=== PATIENT | female | born 1935 | race Caucasian/White ===

== ENCOUNTER 2023-08-03 19:17 | Inpatient (IN) | payer MEDICARE, OTHER, SELFPAY ==
[2023-08-03 13:57] VITALS: BP 136/70
[2023-08-03 14:27] LABS: % Basophils 0.6 % (0-2); % Eosinophils 1.9 % (0-6); % Immature Granulocytes 0.6 % (0-0.5); % Lymphocytes 13.4 % (20.5-51.1); % Neutrophils 74.5 % (42.2-75.2); Absolute Basophils 0.1 10^3/uL (0-0.2); Absolute Eosinophils 0.2 10^3/uL (0-0.7); Absolute Immature Granulocytes 0.1 10^3/uL (0-0.05); Absolute Lymphocytes 1.7 10^3/uL (1.2-3.4); Absolute Monocytes 1.1 10^3/uL (0.1-0.6); Absolute Neutrophils 9.2 10^3/uL (1.4-6.5); Hematocrit 35.8 % (37.0-47.0); Mean Corp Hgb Conc. 33.5 g/dL (33.0-37.0); Mean Corpuscular Hgb 30.9 pg (27.0-31.0); Mean Corpuscular Volume 92.3 fL (81.0-99.0); Mean Platelet Volume 9.9 fL (7.4-10.4); Nucleated Red Blood Cells % 0 %; Platelet Count 324 10^3/uL (130-400); Red Blood Cell Count 3.88 10^6/uL (4.20-5.40); Red Cell Dist. Width 14.6 % (11.5-14.5); White Blood Cell Count 12.4 10^3/uL (4.8-10.8)
[2023-08-03 14:39] LABS: INR 1.16; PT 14.8 Sec (11.4-14.6)
[2023-08-03 14:40] LABS: ALT (SGPT) 24 U/L (0-35); AST (SGOT) 30 U/L (14-36); Albumin 4.2 g/dl (3.5-5.0); Alkaline Phosphatase 88 U/L (38-126); Blood Urea Nitrogen 35 mg/dl (7-17); Calcium 9.4 mg/dl (8.4-10.2); Carbon Dioxide 19 mmol/L (22-30); Chloride 109 mmol/L (98-107); Glucose 177 mg/dl (70-99); Potassium 5.2 mmol/L (3.5-5.1); Sodium 137 mmol/L (135-145); Total Bilirubin 0.9 mg/dl (0.2-1.3); Total Protein 7.5 g/dl (6.3-8.2); eGFR 31.02
[2023-08-03 14:51] LABS: Troponin I 0.026 ng/ml
--- NOTE | 2023-08-03 17:13 | ED.GENMED ---
History of Present Illness
General
Chief Complaint: Breathing Problem
Source: patient
Exam Limitations: none
Time Seen by Provider: 08/03/23 16:57
Travel History
Have you had any contact with someone who has COVID-19?: No
Do you have any symptoms of coronavirus? Fever > 100 degrees, chills, cough, shortness of breath, sore throat, loss of taste or smell, muscle aches, or headache?: No
History of Present Illness
History of Present Illness:
See MDM
Past History
Past History
ED Past Medical History: HTN and Other (Vertigo)
ED Past Surgical History: Other (noncontributory)
Social History
Tobacco: Non-smoker
Alcohol: None
Personal:
Phy Exam
Physical Exam
Physical Exam:
See MDM
Scores
Heart Failure Risk
Heart Failure Risk Score: Yes
History of Stroke or TIA: No
History of intubation for respiratory distress: No
Heart rate on ED arrival >/= 110: No
SaO2 <90% on arrival on room air: No
HR >/=110 during 3min walk test (or too ill to perform test): Yes
ECG has acute ischemic changes: No
Urea >/=12mmol/L (BUN 33.6mg/dL): Yes
Serum CO2>/=35mmol/L: No
Troponin I or T elevated to CO Level (0.4mg/dL): No
NT-proBNP >/=5,000ng/L (5,000pg/ml): No
HF Risk Score: 3
Admission Status: HIGH RISK 15.9% Consider SNF treatment or admission to hospital
Course
Orders/Labs/Results
Orders:
Orders
08/03/23 14:01
Electrocardiogram (*1) Urgent
Reason for Study: Atrial Fibrillation
08/03/23 14:15
Prothrombin Time Urgent
08/03/23 14:16
Complete Blood Count/With Diff Urgent
Comprehensive Metabolic Panel Urgent
NT-proBNP Urgent
Troponin I Urgent
08/03/23 17:00
Add On- LAB Urgent
Tests Added?: BNP, TSH reflex Free T4
08/03/23 17:13
CR Chest - 2 Views Urgent
Comment:
Reason For Exam: SOB x 1 month, new onset A fib, leg swelling
08/03/23 17:15
TSH Reflex To Free T4 Urgent
Comment: ADD ON
08/03/23 17:55
Furosemide [Lasix] 40 mg IV NOW STA
08/03/23 18:03
Consult Cardiology [CARDIOLOGY CONSULT] Routine
Consulting Provider: Vaibhav Dahl
Was physician already notified: Yes
Abnormal Lab Results
08/03/23 08/03/23
14:15 14:16
WBC 12.4 H 10^3/uL
(4.8-10.8)
RBC 3.88 L 10^6/uL
(4.20-5.40)
Hct 35.8 L %
(37.0-47.0)
RDW 14.6 H %
(11.5-14.5)
Abs Immat Gran (auto) 0.1 H 10^3/uL
(0-0.05)
Absolute Neuts (auto) 9.2 H 10^3/uL
(1.4-6.5)
Absolute Monos (auto) 1.1 H 10^3/uL
(0.1-0.6)
Immature Gran % 0.6 H %
(0-0.5)
Lymphocytes % 13.4 L %
(20.5-51.1)
PT 14.8 H Sec
(11.4-14.6)
Potassium 5.2 H mmol/L
(3.5-5.1)
Chloride 109 H mmol/L
(98-107)
Carbon Dioxide 19 L mmol/L
(22-30)
BUN 35 H mg/dl
(7-17)
Creatinine 1.6 H mg/dL
(0.6-1.0)
Glucose 177 H mg/dl
(70-99)
08/03/23 14:16
08/03/23 14:16
Vital Signs
Initial and Last Documented VS:
Initial Vital Signs
Temp Pulse Resp BP Pulse Ox
98.9 F 67 18 136/70 97
08/03/23 13:57 08/03/23 13:57 08/03/23 13:57 08/03/23 13:57 08/03/23 13:57
Last Documented Vital Signs
Temp Pulse Resp BP Pulse Ox
98.9 F 74 24 136/70 96
08/03/23 13:57 08/03/23 17:02 08/03/23 17:02 08/03/23 13:57 08/03/23 17:02
MDM/Problems Addressed
Differential Diagnosis Includes:
HPI and MDM Narrative:
87-year-old female presenting from PCP office for evaluation of shortness of breath x 1 month. Patient found to be in new onset A-fib. Patient states she is short of breath when she ambulates. Patient unsure if her legs are more swollen.
Given her shortness of breath, will obtain chest x-ray
EKG confirms A-Fib.
Troponin negative. Will obtain BNP
Physical exam
General: Well appearing and non-toxic
HEENT: protecting airway
Neck: appears supple
CV: No evidence of cyanosis. Regular rate. Irregular rhythm
Resp: No accessory muscle use. Lungs clear
Abd: Non-distended
Extremities: +1 pitting edema bilateral lower extremities
Neuro: alert
Psych: Normal affect
Skin: Intact
Problems Addressed including Acute and Chronic Conditions affecting care:
1. Shortness of breath
Acuity: acute
Prognosis: stable
Details: Will obtain chest x-ray to rule out pneumonia versus CHF
2. New onset A-fib
Acuity: acute
Prognosis: stable
Details: Currently rate controlled but too symptomatic to go home
Updates
Chest x-ray concerning for mild pulmonary edema. Will give IV Lasix. Cardiology made aware who will evaluate in the morning.
Differential Diagnosis (but not limited to): Pneumonia, CHF, PE
Testing considered: D-dimer
Drug therapy (if applicable): OTC meds, please see d/c instruction regarding Rx drugs
Amount and/or Complexity of Data Reviewed
Clinical info obtained from: Patient and daughter
External data reviewed: N/A
Labs I independently reviewed (but not limited to): Trop normal, BNP 4700
Radiology: X-ray independently reviewed: Chest x-ray concerning for pulmonary edema
Pulse Ox: not hypoxic
EKG independently reviewed: A-fib, normal axis, no STEMI
Natural Gas Inspector: A-fib
Critical Care: The high probability of a clinically significant, sudden or life threatening deterioration of the cardiopulmonary system(s) required my full and direct attention, intervention and personal management. The aggregate critical care time
was 33 minutes. This time is in addition to time spent performing reported procedures but includes the following:
[x] Data Review and interpretation
[x] Patient assessment and monitoring of vital signs
[x] Documentation
[x] Medication orders and management
Risk of Complication:
Social Determinants of health: Good social support
Discussed with other providers: Special Events Director, hospitalist
Escalation of Care includes Admit/Obs: Given new onset A-fib concern for pulmonary edema, will start Lasix and admit
Occasional wrong word or 'sound a like' substitutions may have occurred due to the inherent limitations of voice recognition software. Read the chart carefully and recognize, using context, where substitutions have occurred.
*Critical Care Note
Total Time (30-74mins, 75-104mins- exclusive of procedures): 33 min
ED Attending Note
-
Portions of this chart may have been created with voice recognition software.� Occasional wrong word or��sound alike� substitutions may have occurred due to the inherent limitations of voice recognition software.
Discharge Plan
Departure
Patient Disposition: Admit
Date of Disposition: 08/03/23
Time of Disposition: 18:05
Admit to: Telemetry
Presentation/result/management discussed w/ accepting MD/DO: Hospitalist
Discharge Problem:
New onset a-fib, Pulmonary edema
Prescriptions:
No Action
atenolol 100 MG tablet
100 mg PO DAILY
bimatoprost [Lumigan] 1 DROP drops
1 drp ophthalmic (eye) HS
Patient Comments:
both eyes
meclizine 25 MG tablet
25 mg PO Q8HPRN PRN (Reason: vertigo) Qty: 30 0RF
alendronate 70 MG tablet
70 mg PO SA
levothyroxine 50 MCG tablet
50 mcg PO DAILY
mupirocin 1 APPLIC ointment
1 applic intranasal BID Qty: 1 0RF
Patient Comments:
Patient started this treatment on 12/29/20 in the morning. She administered this morning 01/01/21 @ 0700.
qvxzhgwvsea-ozoiekihl-gajpvfgc [Trelegy Ellipta] 1 EACH blister with device
1 puff inhalation DAILY
sennosides [senna] 1 TABLET tablet
2 tab PO BID 0RF
aspirin 325 MG tablet
325 mg PO DAILY Qty: 28 0RF
Rx Instructions:
Take daily x4 weeks for blood clot prevention; then resume Aspirin 81 mg daily.
magnesium hydroxide 30 ML suspension
30 ml PO DAILYPRN PRN (Reason: constipation) 0RF
pantoprazole 40 MG tablet,delayed release (DR/EC)
40 mg PO DAILY Qty: 30 0RF
docusate sodium 100 MG capsule
100 mg PO BID 0RF
oxycodone 5 MG tablet
5 mg PO Q4HPRN PRN (Reason: moderate-severe pain) Qty: 30 0RF
Rx Instructions:
1 tab moderate pain or 2 if pain severe
Dx total joint replacement
ongoing therapy
acetaminophen 500 MG tablet
1,000 mg PO Q6H Qty: 60 0RF
Rx Instructions:
Do not exceed >4000 mg daily.
losartan 50 MG tablet
50 mg PO DAILY Qty: 0 0RF
Rx Instructions:
Hold if systolic blood pressure <130 while on Oxycodone.
vitamin E 1,000 UNIT capsule
2,000 unit PO DAILY Qty: 0 0RF
Rx Instructions:
Resume in 1 week.
felodipine 10 MG tablet extended release 24 hr
10 mg PO DAILY Qty: 0 0RF
Rx Instructions:
Hold if systolic blood pressure <130 while on Oxycodone.
Referrals:
NONE,* [Family Provider] -
Interventions
Interventions:
*Risk Screen - Suicide Last Done: 08/03/23 13:57
*General Assessment Last Done: 08/03/23 13:57
*Neglect/Abuse Screening Last Done: 08/03/23 13:57
ED- Fall Risk Assessment Last Done: 08/03/23 17:38
*ED COVID-19 Vaccine History Last Done: 08/03/23 17:34
ED- Cardiac Assessment Last Done: 08/03/23 17:38
ED- Pulmonary Assessment Last Done: 08/03/23 17:38
[2023-08-03 17:36] VITALS: BP 144/74
[2023-08-03 17:52] LABS: NT-proBNP 4720 pg/ml
[2023-08-03 18:00] VITALS: BP 139/93
[2023-08-03 18:19] LABS: TSH Reflex To Free T4 4.29 uIU/ml (0.47-4.68)
[2023-08-03] MEDS: LASIX 40 MG IV (18:39)
[2023-08-03] MEDS: ROCEPHIN 1000 MG IV (18:53)
[2023-08-03] MEDS: STERILE WATER FOR INJECTION 10 ML IV (18:53)
[2023-08-03] MEDS: VIBRAMYCIN 100 MG PO (18:53)
--- NOTE | 2023-08-03 18:55 | HPS.HSE ---
Addendum entered and electronically signed by Antonino Carlton MD 08/03/23 19:13:
Patient seen and examined independently with PA.� 87-year-old female past medical history of hypertension, asthma, hypothyroidism, CKD, sent in by primary for new onset A-fib discovered today.� She has been having dry cough and shortness of breath
for the past few weeks.� No fevers or chills.� Increased lower extremity edema with stable weight.� Labs show leukocytosis, hyperkalemia.� Chest x-ray shows small right pleural effusion, tiny pleural effusion, mild suspected airspace disease in the
posterior right lower lobe concerning for pneumonia.� Heart rate is controlled.� Start Eliquis, check echocardiogram, IV Lasix, cardiology consulted.� Check procalcitonin, ceftriaxone/doxycycline.
Original Note:
Family Physician
-
Family Physician: * NONE
Chief Complaint
-
Cough and Shortness of Breath
History of Present Illness
Patient is a 87 y/o female with PMH of HTN, diabetes mellitus type II, and reactive airway disease who presents c/o SOB and dry cough. She presented from her PCP's office where they found new-onset atrial fibrillation. She was treated with
azithromycin and prednisone in June for persistent cough after which she returned to baseline. However, about 3 weeks ago, the cough and SOB returned. She describes dyspnea on exertion and denies SOB at rest, orthopnea, and paroxysmal nocturnal
dyspnea. Her HgbA1C was 8.2 in June. She says she has been not been eating sugar and limiting carbs since June, has been weighing herself everyday and notes no weight change. She admits to swelling her legs for several months that worsens
throughout the day and improves by morning. She denies fever, palpitations, and chest pain.
Medical History
Past Medical History
Past Medical History: Reports Other
Additional Past Medical History:
Essential Hypertension
Diabetes Mellitus, Type II
CKD Stage III
Asthma
Hypothyroidism
Glaucoma / Macular Degeneration
Past Surgical History: Reports Other
Additional Past Surgical History:
Cholecystectomy
Appendectomy
Left Total Knee Replacement
Social History
Tobacco: Non-smoker
Alcohol: None
Family History
Family History: Not pertinent
Allergies / Home Medications
Allergies reflects when Allergies were last updated in [employer].
Home Medications with original date entered in [employer]
Allergy/Medication List:
Allergies
Allergy/AdvReac Type Severity Reaction Status Date / Time
No Known Allergies Allergy Verified 08/03/23 13:55
Home Medications
atenolol 100 mg tablet 100 mg PO DAILY Blood pressure 11/13/16
bimatoprost 0.01 % eye drops (Lumigan) 1 drp BOTH EYES HS Eye condition 11/13/16
levothyroxine 50 mcg tablet 50 mcg PO MOTUWETHFRSA Thyroid 11/18/20
felodipine 10 mg tablet,extended release 24 hr 10 mg PO DAILY Blood pressure ##0 01/02/21
cholecalciferol (vitamin D3) 50 mcg (2,000 unit) tablet (Vitamin D3) 50 mcg PO DAILY 08/03/23
fluticasone furoate 200 mcg-vilanterol 25 mcg/dose inhalation powder (Breo Ellipta) 1 inh inhalation R DAILY 08/03/23
levothyroxine 50 mcg tablet (Synthroid) 100 mcg PO ORTIZ 08/03/23
spironolactone 25 mg tablet 12.5 mg PO DAILY 08/03/23
Review of Systems
-
A 12 point ROS was completed and negative except as noted: Yes
Constitutional: Denies Fever or Chills
Respiratory: Reports See HPI
Cardiac: Denies Chest Pain or Palpitations
Physical Exam
Vital Signs
Vital Signs
Temp Pulse Resp BP Pulse Ox
98.9 F 68 24 139/93 96
08/03/23 13:57 08/03/23 18:39 08/03/23 17:02 08/03/23 18:39 08/03/23 17:02
Physical Exam
General: Comfortable and Conversant
HEENT: Anicteric and Moist mucous membranes
Respiratory: Wheezes (right lower/middle region), Rales (Bilateral bases, right greater than left) and Non Labored Respirations
Cardiac: S1/S2 and Irregular Rhythm; No Tachycardia
GI: Soft and Non Tender
Rectal: Deferred by Provider
Musculoskeletal: No Clubbing, No Cyanosis and Other (+2 pitting edema bilateral lower ext)
Skin: Warm and Dry
Neuro: Awake, Alert, Oriented and Nonfocal/grossly intact
Psych: Calm
Laboratory Results
-
08/03/23 14:16
08/03/23 14:16
Laboratory Results
PT 14.8 Sec (11.4-14.6) H 08/03/23 14:15
INR 1.16 08/03/23 14:15
Total Bilirubin 0.9 mg/dl (0.2-1.3) 08/03/23 14:16
AST 30 U/L (14-36) 08/03/23 14:16
ALT 24 U/L (0-35) 08/03/23 14:16
Alkaline Phosphatase 88 U/L (38-126) 08/03/23 14:16
Troponin I 0.026 ng/ml 08/03/23 14:16
Data Reviewed
-
Lab Data: Labs Reviewed by me
Impression/Plan
-
Acute Heart Failure, unknown type
-Consult Cardiology
-Check Echo
-Continue Lasix
-Continue spironolactone
-Monitor Is&Os and Daily Weights
Atrial Fibrillation, unknown duration
-Consult Cardiology
-Monitor on Telemetry
-Start Eliquis for anticoagulation
Community Acquired Pneumonia
-Start ceftriaxone and doxycycline
-Check procalcitonin
Essential Hypertension
-Continue atenolol and felodipine with hold parameters
Diabetes Mellitus, Type II
-HgbA1c 8.2 in June 2023
-Not currently on medication as outpatient
-Monitor sugars and continue coverage insulin
CKD Stage III
-Creatinine at baseline
-Monitor creatinine closely while on diuretics
Asthma / Reactive Airway Disease
-Continue Breo
Hypothyroidism
-Continue levothyroxine
Glaucoma / Macular Degeneration
-Continue Lumigan drops
DVT proph: Aracelis
Code Status: DNR
[2023-08-03 19:20] VITALS: BP 128/57
[2023-08-03 20:00] VITALS: BP 122/48
[2023-08-03 20:00] LABS: Procalcitonin < 0.05 ng/ml (0.0-0.25)
[2023-08-03 20:53] VITALS: BMI 27.4
[2023-08-03 21:12] VITALS: BP 143/70
[2023-08-03] MEDS: LUMIGAN 0.01% 1 DROP BOTH EYES (21:52)
[2023-08-03] MEDS: ELIQUIS 2.5 MG PO (21:52)
[2023-08-03 22:08] LABS: Glucose - Point of Care 164 mg/dl (70-99)
[2023-08-04] VITALS (8 sets, daily range): BP systolic 122–146; BP diastolic 55–65; PULSE 60–75; O2SAT 95–96; BMI 26.5
[2023-08-04] MEDS: SYNTHROID 50 MCG PO (05:31)
[2023-08-04] MEDS: SYMBICORT 160/4.5 MCG INHALER 2 PUFF INH ×2 (07:38→20:08)
[2023-08-04] MEDS: VIBRAMYCIN 100 MG PO (08:35)
[2023-08-04] MEDS: ALDACTONE 12.5 MG PO (08:35)
[2023-08-04] MEDS: PLENDIL EXTENDED RELEASE 10 MG PO (08:36)
[2023-08-04] MEDS: VITAMIN D3 (cholecalciferol) 50 MCG PO (08:36)
[2023-08-04] MEDS: TENORMIN 100 MG PO (08:36)
[2023-08-04] MEDS: LASIX 40 MG IV ×2 (08:37→16:52)
[2023-08-04] MEDS: ELIQUIS 2.5 MG PO ×2 (08:37→20:29)
[2023-08-04] MEDS: NOVOLOG FLEXPEN-LOW RESISTANCE SC ×2 (08:42→16:51)
[2023-08-04 08:43] LABS: Glucose - Point of Care 135 mg/dl (70-99)
--- NOTE | 2023-08-04 08:45 | CON.CAR ---
Addendum entered and electronically signed by John Mcclellan MD 08/04/23 09:32:
I saw and examined the patient.
The INSTRUMENT LENS GRINDER APPRENTICE's note was reviewed and I agree with the note.
Comment: 87 y/o female with hypertension, DM (not on medicines), hypothyroidism, CKD, reactive airway disease, and hx mildly abnormal stress test 2020 who is here for evaluation of VIDAL x 3-4 weeks with associated cough and edema. She saw her PCP and
was seen to be in AFIB and was sent to ER. She has been diuresing well and HRs are controlled.
- IV diuresis, likely transition to oral in a day or two K >4 Mag > 2
- Will need to be on AC CHADSVASC 7
- HR is controlled
Original Note:
Consultation
Consultation Request
Date/Time Consultation Requested: 08/03/23 180
Date/Time Consultation Performed: 08/04/23905
Requesting Provider: Dr. Ndiaye
Performing Provider: Melissa SHEIKH for Dr. Mcclellan
Reason for Consultation: AFIB, CHF
Medical History
-
Chief Complaint: SOB
History of Present Illness:
87 y/o female with hypertension, DM (not on medicines), hypothyroidism, CKD, reactive airway disease, and hx mildly abnormal stress test 2020 who is here for evaluation of VIDAL x 3-4 weeks with associated cough and edema. She saw her PCP and was seen
to be in AFIB and was sent to ER. She denies any orthopnea or weight gain. She has been working on her diet and not losing any weight. She is admitted for management of possible PNA (abx), acute HF (IV lasix), and AFIB (started on Eliquis). She
denies any CP or palpitations.
Past Medical History
Past Medical History: HTN, Hypothyroidism, NIDDM and Other (as above)
Social History
Tobacco: Non-Smoker
Living: Alone
Family History
Family History: Reviewed & Not Pertinent
Allergies / Home Medications
Allergy/AdvReac Type Severity Reaction Status Date / Time
No Known Allergies Allergy Verified 08/03/23 13:55
Medication Instructions Recorded Confirmed Type
atenolol 100 mg tablet 100 mg PO DAILY Blood pressure 11/13/16 08/03/23 History
bimatoprost 0.01 % eye drops 1 drp BOTH EYES HS Eye condition 11/13/16 08/03/23 History
(Lumigan)
levothyroxine 50 mcg tablet 50 mcg PO MOTUWETHFRSA Thyroid 11/18/20 08/03/23 History
felodipine 10 mg tablet,extended 10 mg PO DAILY Blood pressure ##0 01/02/21 08/03/23 Rx
release 24 hr
cholecalciferol (vitamin D3) 50 50 mcg PO DAILY Supplement 08/03/23 08/03/23 History
mcg (2,000 unit) tablet (Vitamin
D3)
fluticasone furoate 200 1 inh inhalation R DAILY 08/03/23 08/03/23 History
mcg-vilanterol 25 mcg/dose Lung/Breathing Issues
inhalation powder (Breo Ellipta)
levothyroxine 50 mcg tablet 100 mcg PO ORTIZ Thyroid 08/03/23 08/03/23 History
(Synthroid)
spironolactone 25 mg tablet 12.5 mg PO DAILY Fluid 08/03/23 08/03/23 History
Retention/Swelling
Review of Systems
-
History Source: Patient
All other systems: Negative unless noted
Respiratory: Cough and Trouble Breathing
Musculoskeletal: Edema
Physical Exam
Vital Signs
Temp Pulse Resp BP Pulse Ox
97.6 F 88 15 133/56 96
08/04/23 07:00 08/04/23 07:45 08/04/23 07:45 08/04/23 07:00 08/04/23 07:45
Lab Results
Troponin I 0.026 ng/ml 08/03/23 14:16
Hme-Z-Bqdpazvokin Pept 4720 pg/ml 08/03/23 14:16
Physical Exam
General: Well Developed, Well Nourished and No Apparent Distress
HEENT: Normocephalic and Anicteric
Respiratory: Other (diminished to bases)
Cardiac: Irregular Rhythm and Peripheral Edema (mild BLE edema)
GI: Soft and Non Distended
Musculoskeletal: Edema
Skin: Warm and Dry
Neuro: AO x 3
Psych: Calm
Impression / Plan
-
Acute HF, type unknown: last imaging 2020 preserved EF
-agree with IV lasix, which requires intensive monitoring for toxicity
-check echo
-CHF education
-limit sodium/fluid
Possible PNA:
-on abx
-management per primary team
AFIB: new diagnosis- type and onset unknown:
-Rate-controlled on BB- continue atenolol. Denies palpitations
-[id number] score is 7 for age, female, suspected CAD based on stress test, HTN, DM, and CHF- Eliquis 2.5 mg PO BID appropriately started by primary team
-check echo
-TSH WNL
HTN:
-stable
-continue meds and monitor
-if hyperkalemia continues, may need to stop spironolactone- AM labs pending, monitor with diuresis
CKD:
-monitor with diuresis
-AM labs pending
Abnormal stress test hx:
-2020 (see details below)
-never followed up in office after that
-denies any CP
-OP follow-up
Data Reviewed
-
EKG: Tracing Personally Visualized and interpreted (AFIB 71 BPM)
Radiology: Report Reviewed by me (CXR: 08/03/23: Small right pleural effusion. New Tiny left pleural effusion versus pleural thickening. New. Mild suspected airspace disease in the posterior probable right lower lobe concerning for pneumonia. New.
Mild cardiomegaly. Stable.)
Medical Tests (Nuc Med, Echo etc): Report Reviewed by me (stress test 12/15/20: Small, apical, reversible defect consistent with mild ischemia.)
Labs: Labs Reviewed by me
[2023-08-04 08:53] LABS: Hematocrit 36.1 % (37.0-47.0); Mean Corp Hgb Conc. 33.2 g/dL (33.0-37.0); Mean Corpuscular Hgb 30.6 pg (27.0-31.0); Mean Corpuscular Volume 92.1 fL (81.0-99.0); Mean Platelet Volume 10.2 fL (7.4-10.4); Platelet Count 315 10^3/uL (130-400); Red Blood Cell Count 3.92 10^6/uL (4.20-5.40); Red Cell Dist. Width 14.5 % (11.5-14.5); White Blood Cell Count 11.7 10^3/uL (4.8-10.8)
[2023-08-04 09:25] LABS: Blood Urea Nitrogen 34 mg/dl (7-17); Calcium 9.3 mg/dl (8.4-10.2); Carbon Dioxide 24 mmol/L (22-30); Chloride 107 mmol/L (98-107); Estimated Creatinine Clearance 23 ml/min; Glucose 129 mg/dl (70-99); HDL Cholesterol 69 mg/dl; LDL Cholesterol, Calculated 28 mg/dl; Potassium 4.2 mmol/L (3.5-5.1); Sodium 138 mmol/L (135-145); Total Cholesterol 110 mg/dl (50-199); Triglyceride 66 mg/dl (10-149); Very Low Density Lipoprotein 13 mg/dl (0-30); eGFR 33.52
[2023-08-04 09:32] LABS: Glycohemoglobin (HgbA1c) 7.7 % (4.0-5.6)
--- NOTE | 2023-08-04 10:18 | CM ---
Addendum entered by Myriam Weiss 08/04/23 13:58:
PT recommending VN, discussed with patient and daughter will send referral to [facility].
Addendum entered by Myriam Weiss 08/04/23 10:19:
Correction, patient lives alone.
Original Note:
Patient seen bedside.
IA completed.
Patient lives with spouse in 1 story home with 1 step to enter.
Patient independent prior to admission.
Ambulates with a cane.
patient has not had VN, or skilled rehab in the past.
patient denies home care needs at this time.
PCP: Dr Rutherford
Pharamcy: Hayley Farfan
Plan: home no needs anticipated.
[2023-08-04 12:14] LABS: Glucose - Point of Care 217 mg/dl (70-99)
[2023-08-04] MEDS: NOVOLOG FLEXPEN-LOW RESISTANCE 2 UNITS SC (12:43)
--- NOTE | 2023-08-04 13:24 | W.PN.HOSP.TC ---
Today's Communication/Plan
-
All discussed with the patient and the daughter
Assessment / Plan
Assessment / Plan
Physical exam:
General: Awake, alert and oriented x3, not in distress and holds appropriate conversation. Overweight
HEENT: No active discharge, ecchymosis or bruising, moist lips, tongue and mucous membrane.
Eyes: No discharge or red conjunctiva, no nystagmus, pupils are reactive and equal
Neck:Supple, no JVD no bruit no goiter.
Respiratory: Normal AP contour and diameter, normal chest wall movement, normal respiratory effort, no respiratory distress,
Lungs: Good air entry bilaterally, no wheezing or rhonchi, no rales, fine bibasilar crackles
Heart: S1, S2 irregular irregular,, normal rate, no added sound. Moderate bilateral lower extremity
Gastrointestinal: Positive bowel sounds, soft, nontender, no guarding or rigidity or organomegaly
Musculoskeletal: , no chest wall abnormality or tenderness. All joints and extremities have good range of motion, no muscle tenderness or any joint swelling or tenderness.
Extremities: No pitting edema, good peripheral pulses, good range of motion
Skin: Warm and dry, no ulceration, normal color.
Neurological: Awake, alert and oriented x3, no facial droop, moves extremities for speech clear and comprehensive, good muscle tone,.
Psychiatric: Normal mood, normal thought and judgment, normal affect,
Assessment and plan:
Acute Heart Failure, unknown type, likely triggered by new onset A-fib.
-Consult Cardiology
-Check Echo
-Continue Lasix, twice daily and can be changed orally
-Cardiology input appreciated
-Echo done in pending official report.
-Defer further workup to cardiac
-Continue� spironolactone
-Monitor Is&Os and Daily Weights
Atrial Fibrillation, unknown duration
-Consult Cardiology
-New onset
-Rate controlled
-Monitor on Telemetry
-On Tenormin 100 we will continue
-Start Eliquis for anticoagulation
Community Acquired Pneumonia
-No sign and symptom of pneumonia especially there is no fever and procalcitonin is negative.
-DC antibiotic
Essential Hypertension
-Continue atenolol and felodipine with hold parameters
Diabetes Mellitus, Type II
-HgbA1c 8.2 in June 2023
-Not currently on medication as outpatient
-Monitor sugars and continue coverage insulin
CKD Stage III
-Creatinine at baseline
-Monitor creatinine closely while on diuretics
Asthma / Reactive Airway Disease
-Continue Breo
Hypothyroidism
-Continue levothyroxine
Glaucoma / Macular Degeneration
-Continue Lumigan drops
DVT proph: Eliquis
Code Status: DNR
All discussed with the patient
Discussed with the daughter
Anticipated Discharge: 24 - 48 hours
Subjective/Interval History
-
Date of Service: August 04, 2023
Seen and examined, awake and alert, daughter at the bedside, patient's overall feels better than yesterday, she has been feeling nausea weak and lethargic over the last few weeks, workup in ER showed new onset A-fib, currently heart rate is
controlled she has evidence of fluid overload. She has been diuresis. Denies chest pain or any fever or chills.
Objective Data
-
Labs:
Laboratory Results
08/04/23
07:54
WBC 11.7 H
Hgb 12.0
Hct 36.1 L
Plt Count 315
Sodium 138
Potassium 4.2
Chloride 107
Carbon Dioxide 24
BUN 34 H
Creatinine 1.5 H
Glucose 129 H
Calcium 9.3
Vital Signs:
Vital Signs
Temp Pulse Resp BP Pulse Ox
97.6 F 67 18 146/63 97
08/04/23 11:35 08/04/23 11:35 08/04/23 11:35 08/04/23 11:35 08/04/23 11:35
I&O
08/03/23 08/04/23 08/05/23
07:59 07:59 07:59
Intake Total 120 / 120
Output Total 800 / 800
Balance -680 / -680
Review of Systems
-
All other systems: Reviewed and negative
[2023-08-04 16:51] LABS: Glucose - Point of Care 100 mg/dl (70-99)
[2023-08-04] MEDS: LUMIGAN 0.01% 1 DROP BOTH EYES (21:27)
[2023-08-05 03:00] VITALS: BP 132/68
[2023-08-05 05:05] VITALS: BMI 34.5
[2023-08-05] MEDS: SYNTHROID 50 MCG PO (06:16)
[2023-08-05 07:25] VITALS: BP 131/72
[2023-08-05] MEDS: SYMBICORT 160/4.5 MCG INHALER 2 PUFF INH (07:46)
[2023-08-05 08:19] LABS: Glucose - Point of Care 127 mg/dl (70-99)
[2023-08-05 08:26] LABS: Blood Urea Nitrogen 42 mg/dl (7-17); Calcium 9.3 mg/dl (8.4-10.2); Carbon Dioxide 21 mmol/L (22-30); Chloride 105 mmol/L (98-107); Estimated Creatinine Clearance 25 ml/min; Glucose 141 mg/dl (70-99); Magnesium 1.4 mg/dl (1.6-2.3); Potassium 4.1 mmol/L (3.5-5.1); Sodium 137 mmol/L (135-145); eGFR 31.02
[2023-08-05] MEDS: NOVOLOG FLEXPEN-LOW RESISTANCE SC (09:10)
[2023-08-05] MEDS: TENORMIN 100 MG PO (09:18)
[2023-08-05] MEDS: VITAMIN D3 (cholecalciferol) 50 MCG PO (09:18)
[2023-08-05] MEDS: PLENDIL EXTENDED RELEASE 10 MG PO (09:18)
[2023-08-05] MEDS: ALDACTONE 12.5 MG PO (09:18)
[2023-08-05] MEDS: ELIQUIS 2.5 MG PO (09:18)
[2023-08-05] MEDS: LASIX 40 MG IV (09:19)
--- NOTE | 2023-08-05 10:27 | W.PN.CD ---
Today's Communication / Plan
-
stable on current regimen
discharge planning with BMP next week
we will arrange follow up with us
please call us with additional questions
Impression / Plan
-
Acute HFPEF: improved s/p IV lasix
-echo : EF 70%, moderate MR, nl RV, mild/moderate TR, PASP 49
-transition to lasix 40mg PO daily
AFIB: new diagnosis- type and onset unknown: likely persistent
-Rate-controlled on BB- continue atenolol 100mg daily. Denies palpitations
-[id number] score is 7 for age, female, suspected CAD based on stress test, HTN, DM, and CHF- Eliquis 2.5 mg PO BID
HTN:
-stable
-continue meds and monitor
-hyperkalemia resolved with initiation of lasix
-cont atenolol, felodipine, aldactone
CKD3b:stable
Abnormal stress test hx:
-2020 (see details below)
-never followed up in office after that
-denies any CP
-OP follow-up
Physical Exam
Vital Signs/Labs
Vital Signs
Temp Pulse Resp BP Pulse Ox
97.4 F 75 14 131/72 98
08/05/23 07:25 08/05/23 07:53 08/05/23 07:53 08/05/23 07:25 08/05/23 07:53
08/04/23 08/05/23 08/06/23
06:59 06:59 06:59
Actual Weight 65.544 kg 85.36 kg
08/04/23 07:54
08/05/23 07:49
PT 14.8 Sec (11.4-14.6) H 08/03/23 14:15
INR 1.16 08/03/23 14:15
Magnesium 1.4 mg/dl (1.6-2.3) L 08/05/23 07:49
Triglycerides 66 mg/dl (10-149) 08/04/23 07:54
LDL Cholesterol, Calc 28 mg/dl 08/04/23 07:54
VLDL Cholesterol, Calc 13 mg/dl (0-30) 08/04/23 07:54
HDL Cholesterol 69 mg/dl 08/04/23 07:54
08/03/23
14:16
Tex-S-Sephaghbdzx Pept 4720
LAB Results
08/03/23
14:16
Troponin I 0.026
Physical Exam
Constitutional: No acute distress and Comfortable
EENT: Moist mucous membranes
Cardiovascular: Pedal edema is absent, JVD pressure is normal, Rhythm/rate is irregular and Systolic murmur present
Respiratory: Respiratory effort normal and Lungs clear to auscul.
GI: Soft and Distention absent
Neuro/Psych: AO x 3
Data Reviewed
-
Date of Service: August 05, 2023
EKG: Other (Tele: A fib 60s-70s)
Labs: Labs Reviewed by me
[2023-08-05] MEDS: MAGNESIUM OXIDE 500 MG PO (11:22)
[2023-08-05] MEDS: MAGNESIUM SULFATE 50 IV (11:22)
[2023-08-05 11:54] VITALS: BP 127/56
[2023-08-05 12:00] LABS: Glucose - Point of Care 160 mg/dl (70-99)
[2023-08-05] MEDS: NOVOLOG FLEXPEN-LOW RESISTANCE 1 UNITS SC (12:36)
--- NOTE | 2023-08-05 12:58 | W.DS.TRANS ---
DC Summary - [employer]er
-
Discharge Instructions:
Discharge Diagnosis/Procedures CHF and A-fib
Diet Low Cholesterol,2 Gram Sodium,Other diet
Activity As tolerated
Instructions: *PCP/Other Liquefaction Plant Operator Heart Failure Instructions
Stand-Alone Forms:
Changes to Home Medications: No
Discharge Medications:
DC Medications w/original date entered in [place]
atenolol 100 mg tablet 100 mg PO DAILY Blood pressure 11/13/16
bimatoprost 0.01 % eye drops (Lumigan) 1 drp BOTH EYES HS Eye condition 11/13/16
levothyroxine 50 mcg tablet 50 mcg PO MOTUWETHFRSA Thyroid 11/18/20
felodipine 10 mg tablet,extended release 24 hr 10 mg PO DAILY Blood pressure ##0 01/02/21
cholecalciferol (vitamin D3) 50 mcg (2,000 unit) tablet (Vitamin D3) 50 mcg PO DAILY Supplement 08/03/23
fluticasone furoate 200 mcg-vilanterol 25 mcg/dose inhalation powder (Breo Ellipta) 1 inh inhalation R DAILY Lung/Breathing Issues 08/03/23
levothyroxine 50 mcg tablet (Synthroid) 100 mcg PO ORTIZ Thyroid 08/03/23
spironolactone 25 mg tablet 12.5 mg PO DAILY Fluid Retention/Swelling 08/03/23
apixaban 2.5 mg tablet (Eliquis) 2.5 mg PO BID #60 tabs 08/05/23
furosemide 40 mg tablet 40 mg PO DAILY #30 tabs 08/05/23
magnesium 250 mg tablet 250 mg PO DAILY #30 tabs 08/05/23
Home Medication Changes
Pending Results: No
Additional Pending Results:
Physical exam:
General: Awake, alert and oriented x3, not in distress and holds appropriate conversation.
HEENT: No active discharge, ecchymosis or bruising, moist lips, tongue and mucous membrane.
Eyes: No discharge or red conjunctiva, no nystagmus, pupils are reactive and equal
Neck:Supple, no JVD no bruit no goiter.
Respiratory: Normal AP contour and diameter, normal chest wall movement, normal respiratory effort, no respiratory distress,
Lungs: Good air entry bilaterally, no wheezing or rhonchi, no rales or crackles
Heart: S1, S2 regular, normal rate, no added sound., Mild lower extremity edema much better than before
Gastrointestinal: Positive bowel sounds, soft, nontender, no guarding or rigidity or organomegaly
Musculoskeletal: , no chest wall abnormality or tenderness. All joints and extremities have good range of motion, no muscle tenderness or any joint swelling or tenderness.
Extremities: No pitting edema, good peripheral pulses, good range of motion
Skin: Warm and dry, no ulceration, normal color.
Neurological: Awake, alert and oriented x3, no facial droop, speech clear and comprehensive, good muscle tone, normal sensory and motor function
Psychiatric: Normal mood, normal thought and judgment, normal affect,
Condition on discharge: Awake, alert and oriented x3, answer question properly, able to make own decision and take care of activities of daily living, speech clear and comprehensive, continent of the bowel and bladder, ambulate without assistant news director,
goes home where lives with the family independently.
--- NOTE | 2023-08-05 12:58 | W.DCSUMMARY ---
Discharge Summary
Discharge Data
Date of Admission: 08/03/23
Date of Discharge: 08/05/23
-
Pending Results: No
Hospital Course
Discharging Physician : Dr. Tish Hawk
Disposition :
Principal Discharge diagnosis :
1. New onset A-fib with rate controlled
2. Acute congestive heart failure likely triggered by the A-fib, resolved
3. Hypertension
4. Abnormal chest x-ray likely CHF related no evidence of pneumonia as procalcitonin is negative and there was no fever.
5. Diabetes mellitus type 2
6. Chronic kidney disease stage III
7. Asthma
8. Hypothyroidism
Chronic Discharge diagnosis :
History of present illness:
Patient is a 87 y/o female with PMH of HTN, diabetes mellitus type II, and reactive airway disease who presents c/o SOB and dry cough. She presented from her PCP's office where they found new-onset atrial fibrillation. She was treated with
azithromycin and prednisone in June for persistent cough after which she returned to baseline. However, about 3 weeks ago, the cough and SOB returned. She describes dyspnea on exertion and denies SOB at rest, orthopnea, and paroxysmal nocturnal
dyspnea. Her HgbA1C was 8.2 in June. She says she has been not been eating sugar and limiting carbs since June, has been weighing herself everyday and notes no weight change. She admits to swelling her legs for several months that worsens
throughout the day and improves by morning. She denies fever, palpitations, and chest pain.
Hospital Course :
So patient admitted for shortness of breath where the workup showed evidence of acute congestive heart failure and new onset A-fib without rapid ventricular response,, which was new to the patient and the family, workup in the ER showed new onset
A-fib with rate controlled.
So patient admitted started on IV diuresis Lasix 40 twice daily and heart rate remained controlled.
Seen by cardiology and Aracelis started for anticoagulation as A-fib with the risks of thrombosis and stroke explained to the patient and the family..
Patient's condition was improving with IV diuresis her shortness of breath , orthopnea and evidence of the fluid overload were all resolving.
Lasix changed to oral today 40 mg daily by Cardiology, Dr. Aaron Fuentes, from cardiology point of view she is stable for discharge with adding Eliquis and Lasix and they will arrange for outpatient follow-up with them.
A-fib with management and complication explained to the patient and the daughter in detail.
Echo done and showed ejection fraction around 70% with mild mitral regurgitation.
No any other discomfort or abnormality, she very much improved and asymptomatic and stable for discharge.
Chest x-ray shows some abnormality concerning for pneumonia, but this likely from CHF as procalcitonin was negative and there was no fever, initially given antibiotic but that was discontinued.
Advised about side effect and Lasix and need for electrolyte and renal function check regularly will defer to primary care physician specially magnesium level is 1.4 which has been replaced and adding magnesium supplement of magnesium to her
medication list and need to check the level in 7 to 10 days by primary care and address her results.
Also side effect of the Eliquis of bleeding explained and mentioned in the discharge instruction.
Changes to Home Medications: No
Discharge Medications:
DC Medications w/original date entered in [facility]
atenolol 100 mg tablet 100 mg PO DAILY Blood pressure 11/13/16
bimatoprost 0.01 % eye drops (Lumigan) 1 drp BOTH EYES HS Eye condition 11/13/16
levothyroxine 50 mcg tablet 50 mcg PO MOTUWETHFRSA Thyroid 11/18/20
felodipine 10 mg tablet,extended release 24 hr 10 mg PO DAILY Blood pressure ##0 01/02/21
cholecalciferol (vitamin D3) 50 mcg (2,000 unit) tablet (Vitamin D3) 50 mcg PO DAILY Supplement 08/03/23
fluticasone furoate 200 mcg-vilanterol 25 mcg/dose inhalation powder (Breo Ellipta) 1 inh inhalation R DAILY Lung/Breathing Issues 08/03/23
levothyroxine 50 mcg tablet (Synthroid) 100 mcg PO ORTIZ Thyroid 08/03/23
spironolactone 25 mg tablet 12.5 mg PO DAILY Fluid Retention/Swelling 08/03/23
apixaban 2.5 mg tablet (Eliquis) 2.5 mg PO BID #60 tabs 08/05/23
furosemide 40 mg tablet 40 mg PO DAILY #30 tabs 08/05/23
magnesium 250 mg tablet 250 mg PO DAILY #30 tabs 08/05/23
Home Medication Changes�
Pending Results: No
Additional Pending Results:
Physical exam:
General: Awake, alert and oriented x3, not in distress and holds appropriate conversation.
HEENT: No active discharge, ecchymosis or bruising, moist lips, tongue and mucous membrane.
Eyes: No discharge or red conjunctiva, no nystagmus, pupils are reactive and equal
Neck:Supple, no JVD no bruit no goiter.
Respiratory: Normal AP contour and diameter, normal chest wall movement, normal respiratory effort, no respiratory distress,
Lungs: Good air entry bilaterally, no wheezing or rhonchi, no rales or crackles
Heart: S1, S2 regular, normal rate, no added sound.,� Mild lower extremity edema much better than before
Gastrointestinal: Positive bowel sounds, soft, nontender, no guarding or rigidity or organomegaly
Musculoskeletal: , no chest wall abnormality or tenderness.� All joints and extremities have good range of motion, no muscle tenderness or any joint swelling or tenderness.
Extremities: No pitting edema, good peripheral pulses, good range of motion
Skin: Warm and dry, no ulceration, normal color.�
Neurological: Awake, alert and oriented x3, no facial droop, speech clear and comprehensive, good muscle tone, normal sensory and motor function
Psychiatric: Normal mood, normal thought and judgment, normal affect,
Condition on discharge: Awake, alert and oriented x3, answer question properly, able to make own decision and take care of activities of daily living, speech clear and comprehensive, continent of the bowel and bladder, ambulate without certified physician assistant,
goes home where� lives with the family independently.
Discharge Plan
-
Patient Disposition: Home with Home Care
Discharge Diagnosis/Procedures: CHF and A-fib
Condition: Fair
Diet: Low Cholesterol, 2 Gram Sodium and Other diet
Activity: As tolerated
Activity Restrictions/Additional Instructions:
-Been diagnosed with a new onset atrial fibrillation was most likely caused congestive heart failure, echocardiogram showed normal ejection fraction.
Continue home medication while 2 new medication added including furosemide to Lasix which is water pill 40 mg daily the second 1 is Eliquis 2.5 twice a day which is a blood thinner to prevent blood clot formation because of the A-fib and preventing
stroke.
-Lasix just once a day may causes some electrolyte abnormalities therefore need to regular electrolyte and renal function check, will defer to primary care physician to order within a week to 7-day and address the result,
-Because her magnesium was low 1 Lasix make because lower magnesium we starting at 250 mg daily and could have some [place] veggies or could may help replenishing of keeping magnesium level at normal range, also need to check the level in 7 to 10
days if the result is okay could be addressed with the primary care physician regarding continuation of the supplement on.
-Eliquis 2.5 mg twice it is a blood thinner, may cause any bleeding, if any bleeding or any changes stool or urine color appreciated need to be addressed with the primary care physician or return to the hospital.
-Monitor blood pressure closely and have diarrhea, call cardiology or primary care physician of the blood pressure consistently above 130/75.
-Monitor heart rate closely and have diarrhea, call primary care licensing registration examiner with a heart rate consistently above 120 or below 55.
Instructions: *PCP/Other Working Manager Heart Failure Instructions
Referrals:
Mine Elias CRNP [Specified Professional Personl] - 08/18/23 9:20 am
Paddy Rutherford MD [Family Provider] -
Prescriptions:
New
Eliquis 2.5 mg Tablet
2.5 mg PO BID Qty: 60 1RF
furosemide 40 mg Tablet
40 mg PO DAILY Qty: 30 1RF
magnesium 250 mg tablet
250 mg PO DAILY Qty: 30 1RF
Continued
atenolol 100 MG tablet
100 mg PO DAILY
Lumigan 1 DROP drops
1 drp BOTH EYES HS
levothyroxine 50 MCG tablet
50 mcg PO MOTUWETHFRSA
felodipine 10 MG tablet extended release 24 hr
10 mg PO DAILY Qty: 0 0RF
spironolactone 25 mg Tablet
12.5 mg PO DAILY
levothyroxine [Synthroid] 50 mcg Tablet
100 mcg PO ORTIZ
cholecalciferol (vitamin D3) [Vitamin D3] 50 mcg (2,000 unit) Tablet
50 mcg PO DAILY
fluticasone furoate-vilanterol [Breo Ellipta] 200-25 mcg/dose Blister With Device
1 inh INHALATION R DAILY
Discharge Orders:
Discharge Patient (As Directed); Ordered 08/05/23
Ordered By: Tish Hawk
Discharge Date and Time
Discharge Date/Time: 08/05/23 16:07
--- NOTE | 2023-08-05 13:14 | CM ---
patient for d/c home today.
IMM reviewed and signed.
Plan: home with VN
Mane VILLAVICENCIO
== END 2023-08-05 16:07 | disposition home health service (06) | DRG 291 ==
LOC: 4 WEST ACU 19:17
PROVIDERS: Physician Assistant Medical; ADMITTING PHYSICIAN Hospitalist; ATTENDING PHYSICIAN Internal Medicine; CONSULT PHYSICIAN Internal Medicine; EMERGENCY PHYSICIAN Student in an Organized Health Care Education/Training Program; FAMILY PHYSICIAN Family Medicine
DX: I13.0 Hypertensive heart and chronic kidney disease with heart failure and stage 1 through stage 4 chronic kidney disease, or unspecified chronic kidney disease (principal); I50.31 Acute diastolic (congestive) heart failure; I48.19 Other persistent atrial fibrillation; E11.22 Type 2 diabetes mellitus with diabetic chronic kidney disease; E03.9 Hypothyroidism, unspecified; J45.909 Unspecified asthma, uncomplicated; N18.30 Chronic kidney disease, stage 3 unspecified; Z66 Do not resuscitate
CPT/HCPCS: 71046; 80048; 80053; 80061; 82962; 83036; 83735; 83880; 84145; 84443; 84484; 85025; 85027; 85610; 93005; 93306; 94640; 96374; 97162; 97166; 99291

== ENCOUNTER → 2023-08-25 06:51 | Day surgery (SDC) | payer MEDICARE, OTHER, SELFPAY | LOC: CATH 06:51 | PROVIDERS: ATTENDING PHYSICIAN Internal Medicine; FAMILY PHYSICIAN Family Medicine | DX: I08.1 Rheumatic disorders of both mitral and tricuspid valves (principal); Q21.12 Patent foramen ovale; Q21.0 Ventricular septal defect; I08.8 Other rheumatic multiple valve diseases; I12.9 Hypertensive chronic kidney disease with stage 1 through stage 4 chronic kidney disease, or unspecified chronic kidney disease; E11.22 Type 2 diabetes mellitus with diabetic chronic kidney disease; N18.30 Chronic kidney disease, stage 3 unspecified; R06.02 Shortness of breath; I48.91 Unspecified atrial fibrillation | CPT/HCPCS: 93312; 93320; 93325 ==

== ENCOUNTER → 2023-10-03 06:50 | Day surgery (SDC) | payer MEDICARE, OTHER, SELFPAY ==
[2023-10-03 07:42] VITALS: BMI 35.0
== END ==
LOC: CATH 06:50
PROVIDERS: ATTENDING PHYSICIAN Internal Medicine; FAMILY PHYSICIAN Family Medicine
DX: I48.0 Paroxysmal atrial fibrillation (principal); I08.1 Rheumatic disorders of both mitral and tricuspid valves; I13.0 Hypertensive heart and chronic kidney disease with heart failure and stage 1 through stage 4 chronic kidney disease, or unspecified chronic kidney disease; I50.32 Chronic diastolic (congestive) heart failure; N18.32 Chronic kidney disease, stage 3b; E11.22 Type 2 diabetes mellitus with diabetic chronic kidney disease; E78.5 Hyperlipidemia, unspecified; R06.09 Other forms of dyspnea; Q21.12 Patent foramen ovale; Z79.01 Long term (current) use of anticoagulants
CPT/HCPCS: 93312; 93320; 93325; 92960; 93005

== ENCOUNTER → 2024-02-09 09:27 | Outpatient (REF) | payer MEDICARE, OTHER, SELFPAY | LOC: HWRAD 09:27 | PROVIDERS: ATTENDING PHYSICIAN Student in an Organized Health Care Education/Training Program; FAMILY PHYSICIAN Family Medicine | DX: E11.22 Type 2 diabetes mellitus with diabetic chronic kidney disease (principal) | CPT/HCPCS: 76770 ==

== ENCOUNTER → 2024-09-03 11:41 | Outpatient (REF) | payer MEDICARE, BC, SELFPAY | LOC: HWRAD 11:41 | PROVIDERS: ATTENDING PHYSICIAN Family Medicine; FAMILY PHYSICIAN Family Medicine | DX: R05.3 Chronic cough (principal) | CPT/HCPCS: 71046 ==

== ENCOUNTER → 2024-12-14 11:04 | Outpatient (REF) | payer MEDICARE, BC, SELFPAY | LOC: HWRCS 11:04 | PROVIDERS: ATTENDING PHYSICIAN Nurse Practitioner Gerontology; FAMILY PHYSICIAN Family Medicine | DX: I50.32 Chronic diastolic (congestive) heart failure (principal) | CPT/HCPCS: 93306 ==

== ENCOUNTER → 2025-02-19 10:46 | Outpatient (REF) | payer MEDICARE, BC, SELFPAY | LOC: HWWDC 10:46 | PROVIDERS: ATTENDING PHYSICIAN Obstetrics & Gynecology Gynecology; FAMILY PHYSICIAN Family Medicine | DX: Z12.31 Encounter for screening mammogram for malignant neoplasm of breast (principal) | CPT/HCPCS: 77063; 77067 ==

== ENCOUNTER → 2025-05-13 14:04 | Outpatient (REF) | payer MEDICARE, BC, SELFPAY | LOC: RAD 14:04 | PROVIDERS: ATTENDING PHYSICIAN Family Medicine | DX: R06.02 Shortness of breath (principal); Z20.828 Contact with and (suspected) exposure to other viral communicable diseases; I48.11 Longstanding persistent atrial fibrillation; R05.1 Acute cough; I50.32 Chronic diastolic (congestive) heart failure; N18.4 Chronic kidney disease, stage 4 (severe); M10.9 Gout, unspecified | CPT/HCPCS: 71046 ==